=== PATIENT | female | born 1950 | race Caucasian/White ===

== ENCOUNTER 2017-11-10 10:07 | Emergency (ER) | payer MEDICAID, MEDICARE ==
[~2017-11-10] VITALS: Ht 165.1 cm; Wt 78.2 kg
[~2017-11-10 10:07] MED LIST: ALBU18HF PO; ASPI-496 PO; ASPI325T17 PO; BUDE10.22 PO; CIPR500T87 PO; HYDR-3237 PO; MAGN296S9 PO; METF500T5 PO; ONDA4TAB7 PO; OXYC-302 PO; PRAV40TA2 PO; TIOT18CA INH
[2017-11-10] MEDS ORDERED: LINA290C PO (10:33)
[2017-11-10] MEDS ORDERED: FLUT1BLS INH (10:33)
[2017-11-10] MEDS ORDERED: ATOR20TA9 PO (10:33)
[2017-11-10] MEDS ORDERED: UMEC62.5 INH (10:33)
[2017-11-10 10:59] LABS: BASOPHILS # (AUTO) 0.01 x10^3/uL (0-0.1); BASOPHILS % (AUTO) 0 % (0-1); EOSINOPHILS # (AUTO) 0.01 x10^3/uL (0-0.4); EOSINOPHILS % (AUTO) 0 % (1-7); LYMPHOCYTES % (AUTO) 6 % (22-44); MD NO; MEAN CORPUSCULAR HEMOGLOBIN 29.7 pg (27.0-34.8); MEAN CORPUSCULAR HGB CONC 33.6 g/dL (32.4-35.8); MEAN CORPUSCULAR VOLUME 88.3 fL (80-100); MONOCYTES # (AUTO) 0.55 x10^3/uL (0.2-0.8); MONOCYTES % (AUTO) 4 % (2-9); NEUTROPHILS # (AUTO) 11.62 x10^3/uL (1.8-6.8); NEUTROPHILS % (AUTO) 90 % (42-75); PLATELET COUNT 275 x10^3/uL (130-400); RED CELL DISTRIBUTION WIDTH 13.5 % (9.6-15.2)
[2017-11-10 11:08] LABS: MICROSCOPIC AUTO
[2017-11-10 11:09] LABS: CULTURE INDICATED? YES
[2017-11-10 11:09] LABS: ALBUMIN 3.3 g/dL (3.4-5.0); ANION GAP 5 mmol/L (5-15); CALCIUM 8.2 mg/dL (8.5-10.1); CHLORIDE 104 mmol/L (98-107); CREATININE 1.11 mg/dL (0.55-1.02)
[2017-11-10] MEDS ORDERED: CEFTRIAXONE PMX 1GM/50ML 50 ML IVPB ONE (12:00)
[2017-11-10] MEDS ORDERED: CEFTRIAXONE PMX 1GM/50ML 50 ML ONE (12:03)
[2017-11-10] MEDS ORDERED: ONDANSETRON 2MG/ML, 2ML IVPush ONE (12:30)
[2017-11-10] MEDS ORDERED: ONDANSETRON 2MG/ML, 2ML ONE (12:36)
[2017-11-10 13:35] VITALS: BP 116/49
== END 2017-11-10 13:38 | disposition home or self-care (01) ==
LOC: ED 13:32
DX: N30.01 Acute cystitis with hematuria (principal); N20.2 Calculus of kidney with calculus of ureter; J44.9 Chronic obstructive pulmonary disease, unspecified; E78.5 Hyperlipidemia, unspecified; E11.9 Type 2 diabetes mellitus without complications; Z90.49 Acquired absence of other specified parts of digestive tract
CPT/HCPCS: 36415; 74176; 80048; 81001; 82040; 83605; 84145; 85025; 87077; 87086; 96365; 96375; 99285; J0696; J2405; 87186

== ENCOUNTER → 2017-11-29 | Outpatient (CLI) | payer MEDICARE ==
[~2017-11-29] MED LIST changes: +ATOR20TA9 PO; +FLUT1BLS INH; +LINA290C PO; +UMEC62.5 INH
[2017-11-29 09:49] LABS: BASOPHILS # (AUTO) 0.09 x10^3/uL (0-0.1); BASOPHILS % (AUTO) 1 % (0-1); EOSINOPHILS # (AUTO) 0.07 x10^3/uL (0-0.4); EOSINOPHILS % (AUTO) 1 % (1-7); LYMPHOCYTES # (AUTO) 2.35 x10^3/uL (1-3.4); LYMPHOCYTES % (AUTO) 31 % (22-44); MD NO; MEAN CORPUSCULAR HEMOGLOBIN 29.4 pg (27.0-34.8); MEAN CORPUSCULAR HGB CONC 33.2 g/dL (32.4-35.8); MEAN CORPUSCULAR VOLUME 88.4 fL (80-100); MEAN PLATELET VOLUME 6.8 fL (7.4-10.4); MONOCYTES # (AUTO) 0.36 x10^3/uL (0.2-0.8); MONOCYTES % (AUTO) 5 % (2-9); NEUTROPHILS # (AUTO) 4.66 x10^3/uL (1.8-6.8); NEUTROPHILS % (AUTO) 62 % (42-75); PLATELET COUNT 340 x10^3/uL (130-400); RED BLOOD COUNT 5.17 x10^6/uL (3.82-5.3); RED CELL DISTRIBUTION WIDTH 13.8 % (9.6-15.2)
[2017-11-29 10:16] LABS: ANION GAP 8 mmol/L (5-15); CALCIUM 8.8 mg/dL (8.5-10.1); CHLORIDE 108 mmol/L (98-107)
== END | disposition home or self-care (01) ==
LOC: STAR 08:34
PROVIDERS: ATTEND Anesthesiology
DX: Z01.818 Encounter for other preprocedural examination (principal); N20.0 Calculus of kidney; R94.31 Abnormal electrocardiogram [ECG] [EKG]
CPT/HCPCS: 36415; 80048; 85025; 93005

== ENCOUNTER 2017-12-06 10:45 | Day surgery (SDC) | payer MEDICARE ==
[~2017-12-06] VITALS: Ht 166.4 cm; Wt 78.4 kg
[2017-12-06 11:23] VITALS: BP 118/73
[2017-12-06] MEDS ORDERED: ACETAMINOPHEN 500 MG TABLET PO ONE (11:30)
[2017-12-06] MEDS ORDERED: GABAPENTIN 300 MG CAPSULE PO ONE (11:30)
[2017-12-06] MEDS ORDERED: LACTATED RINGERS 1,000 ML IV SCH (12:00)
[2017-12-06] MEDS ORDERED: MIDAZOLAM 1 MG/ML, 2ML ONE (12:01)
[2017-12-06] MEDS ORDERED: FENTANYL PF 100 MCG/2ML ONE (12:02)
[2017-12-06] MEDS ORDERED: ONDANSETRON 2MG/ML, 2ML ONE (12:59)
[2017-12-06] MEDS ORDERED: PROPOFOL 10 MG/ML, 20ML ONE (12:59)
[2017-12-06] MEDS ORDERED: SUCCINYLCHOLINE 20 MG/ML, 10ML ONE (12:59)
[2017-12-06] MEDS ORDERED: OMNIPAQUE 350 MG/ML, 50 ML BOTTLE INJ ONE (13:29)
[2017-12-06] MEDS ORDERED: MEPERIDINE/PF 25MG/0.5ML IVPush PRN (14:30)
[2017-12-06] MEDS ORDERED: ALBUTEROL SULFATE 2.5 MG/3 ML NPPB PRN (14:30)
[2017-12-06] MEDS ORDERED: FENTANYL PF 100 MCG/2ML IV PRN (14:30)
[2017-12-06] MEDS ORDERED: PROMETHAZINE 25 MG/ML, 1ML IV PRN (14:30)
[2017-12-06] MEDS ORDERED: KETOROLAC 30 MG/1 ML IV PRN (14:30)
[2017-12-06] MEDS ORDERED: METOCLOPRAMIDE 5 MG/ML, 2ML IV PRN (14:30)
[2017-12-06] MEDS ORDERED: ONDANSETRON 2MG/ML, 2ML IVPush PRN (14:30)
[2017-12-06] MEDS ORDERED: hydrALAzine 20 MG/ML, 1ML IV PRN (14:30)
[2017-12-06] MEDS ORDERED: OXYcodone/APAP 5/325MG TABLET PO PRN (14:30)
[2017-12-06] MEDS ORDERED: OXYcodone 5 MG/5 ML ORAL.SOL UDC PO PRN (14:30)
[2017-12-06] MEDS ORDERED: HYDROmorphone 1 MG/ML, 1ML IV PRN (14:30)
[2017-12-06] MEDS ORDERED: LABETALOL 5MG/ML, 20ML IV PRN (14:30)
[2017-12-06] MEDS ORDERED: OMNIPAQUE 350 MG/ML, 50 ML BOTTLE ONE (14:33)
[2017-12-06] MEDS ORDERED: PHENAZOPYRIDINE 200 MG TABLET ONE (14:40)
[2017-12-06] MEDS ORDERED: PHENAZOPYRIDINE 200 MG TABLET PO ONE (15:00)
== END 2017-12-06 16:45 ==
LOC: OUT 10:45
PROVIDERS: ATTEND Urology
DX: N20.0 Calculus of kidney (principal); Z53.9 Procedure and treatment not carried out, unspecified reason; J44.9 Chronic obstructive pulmonary disease, unspecified; E03.9 Hypothyroidism, unspecified; Z98.890 Other specified postprocedural states; Z87.39 Personal history of other diseases of the musculoskeletal system and connective tissue; Z96.652 Presence of left artificial knee joint; Z90.710 Acquired absence of both cervix and uterus; Z88.6 Allergy status to analgesic agent; Z79.82 Long term (current) use of aspirin; F17.210 Nicotine dependence, cigarettes, uncomplicated
CPT/HCPCS: 52356; 74420; 82360; 88300; C1758; C1769; C2617; J0330; J2250; J2405; J2704; J3010; J7120; Q9967

== ENCOUNTER 2019-11-01 09:14 | Emergency (ER) | payer MEDICARE, BC ==
[~2019-11-01] VITALS: Ht 165.1 cm; Wt 80.0 kg
[~2019-11-01 09:14] MED LIST changes: +ATOR20TA37 PO; -ATOR20TA9 PO; +MAGN296S67 PO; -MAGN296S9 PO; +METF500T17 PO; -METF500T5 PO
[2019-11-01] MEDS ORDERED: ONDANSETRON 2MG/ML, 2ML ONE ×2 (09:43→12:23)
[2019-11-01] MEDS ORDERED: MORPHINE SULFATE 4 MG/ML, 1ML ONE (09:43)
[2019-11-01] MEDS ORDERED: FENTANYL PF 100 MCG/2ML ONE ×2 (09:57→12:24)
[2019-11-01] MEDS ORDERED: KETOROLAC 30 MG/1 ML ONE (09:58)
[2019-11-01] MEDS ORDERED: FENTANYL PF 100 MCG/2ML IV ONE ×2 (10:00→12:30)
[2019-11-01] MEDS ORDERED: SODIUM CHLORIDE FLUSH 10ML SYR IVF ONE (10:00)
[2019-11-01] MEDS ORDERED: ONDANSETRON 2MG/ML, 2ML IVPush ONE ×2 (10:00→12:30)
[2019-11-01] MEDS ORDERED: KETOROLAC 30 MG/1 ML IVPush ONE ×2 (10:00)
--- NOTE | 2019-11-01 10:04 | NUR ---
PT PRESENTS TO ED WITH C/O RIGHT FLANK/ABDOMINAL PAIN X 3 DAYS, AND NUMEROUS EMESIS STARTING LAST NIGHT. PT HAS HX KIDNEY STONES, STATES THIS FEELS SIMILAR. PT A&O, RESPS EVEN AND UNLABORED. PT MEDICATED PER EMAR, BP AND SPO2 MONITORS IN PLACE. CALL LIGHT IN REACH. PT TO CT AT THIS TIME.
[2019-11-01 10:10] LABS: BASOPHILS # (AUTO) 0.03 x10^3/uL (0-0.1); BASOPHILS % (AUTO) 0 % (0-1); EOSINOPHILS # (AUTO) 0.16 x10^3/uL (0-0.4); EOSINOPHILS % (AUTO) 2 % (1-7); LYMPHOCYTES # (AUTO) 2.16 x10^3/uL (1-3.4); LYMPHOCYTES % (AUTO) 22 % (22-44); MD NO; MEAN CORPUSCULAR HEMOGLOBIN 29.9 pg (27.0-34.8); MEAN CORPUSCULAR HGB CONC 33.5 g/dL (32.4-35.8); MEAN CORPUSCULAR VOLUME 89.3 fL (80-100); MEAN PLATELET VOLUME 7.5 fL (7.4-10.4); MONOCYTES % (AUTO) 4 % (2-9); NEUTROPHILS # (AUTO) 6.98 x10^3/uL (1.8-6.8); NEUTROPHILS % (AUTO) 72 % (42-75); PLATELET COUNT 349 x10^3/uL (130-400); RED CELL DISTRIBUTION WIDTH 13.6 % (9.6-15.2)
[2019-11-01 10:19] LABS: ALANINE AMINOTRANSFERASE 23 U/L (12-78); ALBUMIN 3.9 g/dL (3.4-5.0); ANION GAP 4 mmol/L (5-15); CALCIUM 8.9 mg/dL (8.5-10.1); CHLORIDE 111 mmol/L (98-107); CREATININE 0.93 mg/dL (0.55-1.02)
[2019-11-01 10:21] LABS: ALKALINE PHOSPHATASE 93 U/L (45-117); BILIRUBIN,TOTAL 0.4 mg/dL (0.2-1.0); TOTAL PROTEIN 7.3 g/dL (6.4-8.2)
--- NOTE | 2019-11-01 10:35 | NUR ---
PT BACK FROM CT, PT A&O, RESPS EVEN AND UNLABORED, DENIES PAIN. N/V RESOLVED. PT INSTRUCTED TO PROVIDE CLEAN CATCH URINE, PT UP TO BATHROOM WITH DAUGHTER, GAIT STEADY.
--- NOTE | 2019-11-01 11:04 | NUR ---
this RN spoke with [facility] who states order for ua has changed to straight cath for improved accuracy. pt informed of POC, agrees to straight cath. straight cath urine obtained, sterile technique maintained. urine walked to lab. pt is a&o, rsps even and unlabored. pt denies pain. no n/v. call light in reach. awaiting ua and dispo.
[2019-11-01 11:12] LABS: MICROSCOPIC INDICATED
--- NOTE | 2019-11-01 11:35 | NUR ---
all results back, chart up for recheck, awaiting MD and dispo.
--- NOTE | 2019-11-01 12:36 | NUR ---
initial straight cath ua results inconclusive. pt educated regarding need for second straight cath, pt agreeable. second straight cath obtained, sterile technique maintained. urine walked to lab. pt medicated per emar for returning abd pain and nausea. bp and spo2 monitors in place. awaiting ua results and dispo.
[2019-11-01 13:00] LABS: MICROSCOPIC INDICATED
--- NOTE | 2019-11-01 13:17 | NUR ---
pt resting on gurney, resps even and unlabored. pt denies pain, denies nausea. second straight cath results reviewed by EDPA and EDMD Law. Per MD Law, second ua (collected at 1220) is satisfactory, wishes this sample to be cultered, requested RN to notify lab to cancel culture of first sample (collected at 1100) and culture second urine sample (straight cath collected at 1220). [employer] electronic lab technician Malena notified, Malena confirms second ua will be cultured and first sample culture will be cancelled.
[2019-11-01 13:44] VITALS: BP 118/55
== END 2019-11-01 13:46 | disposition home or self-care (01) ==
LOC: ED 09:39
DX: N20.2 Calculus of kidney with calculus of ureter (principal); N13.30 Unspecified hydronephrosis; E11.9 Type 2 diabetes mellitus without complications; E78.5 Hyperlipidemia, unspecified; J44.9 Chronic obstructive pulmonary disease, unspecified; F17.200 Nicotine dependence, unspecified, uncomplicated
CPT/HCPCS: 36415; 74176; 80053; 81001; 83690; 85025; 87086; 96374; 96375; 96376; 99285; J1885; J2405; J3010